=== PATIENT | male | born 1970 | race Two or more races ===

== ENCOUNTER 2024-07-05 08:14 | Outpatient (AMB) | payer BC, SELFPAY ==
[2024-07-05 08:24] VITALS: BP 178/83; PULSE 71; RESP 18; TEMP 36.1; O2SAT 99; BMI 26.5
--- NOTE | 2024-07-05 08:24 | ORTHONT_ITS ---
Vital signs 07/05/24 08:24 Height 1.68 m Height Method Stated Weight 74.616 kg Weight Measurement Method Standing Scale BMI 26.5 BP 178/83 H Blood Pressure Source Automatic Cuff Blood Pressure Location Right Upper Arm Position Sitting Respiration 18 Pulse 71 Pulse Source Monitor Temp 96.9 F Temp Source Temporal Artery Scan Pulse Oximetry (%) 99 Oxygen Delivery Method Room Air Med/Allergies Allergies & Medications Allergies No Known Drug Allergies Allergy (Verified 07/05/24 08:24) Medication Reconciliation cholecalciferol (vitamin D3) 50 mcg (2,000 unit) capsule 50 mcg PO QDAY 07/05/24 [History Confirmed 07/05/24] hydrochlorothiazide 50 mg tablet 50 mg PO QDAY 07/05/24 [History Confirmed 07/05/24] losartan 50 mg tablet 50 mg PO QDAY 07/05/24 [History Confirmed 07/05/24] meloxicam 7.5 mg tablet 7.5 mg PO QDAY #45 tabs 07/05/24 [Rx] rosuvastatin 20 mg tablet 20 mg PO QDAY 07/05/24 [History Confirmed 07/05/24] semaglutide 0.25 mg or 0.5 mg (2 mg/1.5 mL) subcutaneous pen injector (Ozempic) 0.5 mg subcut QWEEK 07/05/24 [History Confirmed 07/05/24] Subjective Visit Visit for: new patient and knee Immunization / Flu Flu Vaccine in the Last 12 Months: Yes Flu Vaccine Exclusion Criteria: Already Received History of Present Illness Chief complaint: BILATERAL KNEE PAIN Date of injury / onset of symptoms: JANUARY Patient is a 53-year-old male with bilateral knee pain. The pain has been ongoing for 3 years. It has worsened recently. The pain is worsened in the last 6 months after a fall. He reports that his feels like his knee popped. He is able to walk And has tried ibuprofen. Has not had any injections or physical therapy. 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 Exam Exam Patient is in no acute distress and is cooperative with the examination today. Breathing is nonlabored. In no respiratory distress. Bilateral extremities were evaluated and demonstrates sensation intact to light touch. Palpable pedal pulses are present. No significant edema is present. Bilateral hips were examined. The patient has no pain with log roll of the hips. Internal rotation to 30 degrees and external rotation to 30 degrees is painless. Negative FADIR. The left knee was examined. The left knee is in [varus] alignment. Range of motion from [0-115] degrees. Knee is stable to varus and valgus as well as AP translation with <5mm. Patient has a [negative] McMurrays. There is [no] pain with patellofemoral compression and [no] crepitus noted. The knee is [tender] to palpation [medially]. The right knee was also examined. The right knee is in [varus] alignment. Range of motion from [0-120] degrees. Knee is stable to varus and valgus as well as AP translation with <5mm. Patient has a [negative] McMurrays. There is [no] pain with patellofemoral compression and [no] crepitus noted. The knee is [tender] to palpation [medially]. I can only review nonweightbearing imaging from [place] [facility]. This demonstrates mild osteoarthritis with medial joint space narrowing Assessment and Plan Problem List (1) Degenerative arthritis of knee, bilateral: Status: Acute Plan: Patient is a 53-year-old male with bilateral knee pain and bilateral knee arthritis. We are getting x-rays to better evaluate his knees. We need weightbearing x-rays. We will see him back after his x-rays are done and likely give him injections at the next visit. We gave him a prescription for meloxicam Office Procedures GNS Level of Care Nursing/Assessment Patient Status: Initial/New Patient Nursing Assessment/Reassesment: Medication Reconciliation, Update PMH in EMR and Vital Signs Coordination of Care: Complex Care and Chronic Disease 1-5, Education Complex Pt/Fam, Consent,records obtained, informed consent, Lab and Imaging orders, Results/Orders obtained and Staff clarify orders New Patient Charge New Patient Point Assignment: 1109 New Patient Point Charge: TOURIST ADVISER Level 3 ([id number]) Past Medical History Past Medical History Have you ever been diagnosed with any of the following: Cardiology Problems Hypertension: Yes Respiratory Problems Smoking: No Smoking Exposure: No
== END 2024-07-05 09:17 | disposition home or self-care (01) ==
LOC: HODSRG 08:14
PROVIDERS: PCP Internal Medicine; Referring Provider Internal Medicine; Supervising Provider Orthopaedic Surgery Adult Reconstructive Orthopaedic Surgery; Visit Provider Orthopaedic Surgery Adult Reconstructive Orthopaedic Surgery
DX: M17.0 Bilateral primary osteoarthritis of knee (principal); I10 Essential (primary) hypertension
CPT/HCPCS: 99203; G0463

== ENCOUNTER → 2024-07-05 | Outpatient (CLI) | payer BC, SELFPAY ==
--- NOTE | 2024-07-05 10:31 | XR_ITS ---
Examination: Bilateral knees 2 views Right lateral knee left lateral knee 2 views Bilateral axial knees single view TECHNIQUE: Bilateral AP knees standing single view, bilateral PA knees standing single view 30 degrees flexion Staining right lateral knee left lateral knee 2 views Bilateral axial knees single view total 5 views Exam date and time: July 05, 2024 1129 hours INDICATIONS: Patient fell 6 months ago with injury to both knees, bilateral knee pain. FINDINGS: Moderate osteopenia No fracture or dislocation involving either knee Bilateral moderate to advanced narrowing lateral joint spaces Bilateral moderate osteoarthritis patellofemoral joints Bilateral small knee effusions Soft tissue vascular calcification IMPRESSION: No fracture or dislocation involving either knee Bilateral moderate to advanced narrowing lateral joint spaces
== END | disposition home or self-care (01) ==
PROVIDERS: Referring Provider Orthopaedic Surgery Adult Reconstructive Orthopaedic Surgery; Visit Provider Orthopaedic Surgery Adult Reconstructive Orthopaedic Surgery
DX: M25.862 Other specified joint disorders, left knee (principal); M25.861 Other specified joint disorders, right knee; S89.91XS Unspecified injury of right lower leg, sequela; S89.92XS Unspecified injury of left lower leg, sequela; W19.XXXS Unspecified fall, sequela
CPT/HCPCS: 73564

== ENCOUNTER 2024-07-22 14:45 | Outpatient (AMB) | payer BC, SELFPAY ==
[2024-07-22 14:50] VITALS: BP 176/88; PULSE 93; RESP 18; TEMP 36.5; O2SAT 98; BMI 26.9
--- NOTE | 2024-07-22 14:50 | RHCORTHONT_ITS ---
Vital signs 07/22/24 14:50 Height 1.68 m Height Method Stated Weight 75.948 kg Weight Measurement Method Standing Scale BMI 26.9 BP 176/88 H Blood Pressure Source Automatic Cuff Blood Pressure Location Right Upper Arm Position Sitting Respiration 18 Pulse 93 Pulse Source Monitor Temp 97.7 F Temp Source Temporal Artery Scan Pulse Oximetry (%) 98 Oxygen Delivery Method Room Air Med/Allergies Allergies & Medications Allergies No Known Drug Allergies Allergy (Verified 07/22/24 14:53) Medication Reconciliation cholecalciferol (vitamin D3) 50 mcg (2,000 unit) capsule 50 mcg PO QDAY 07/05/24 [History Confirmed 07/22/24] hydrochlorothiazide 50 mg tablet 50 mg PO QDAY 07/05/24 [History Confirmed 07/22/24] losartan 50 mg tablet 50 mg PO QDAY 07/05/24 [History Confirmed 07/22/24] meloxicam 7.5 mg tablet 7.5 mg PO QDAY #45 tabs 07/05/24 [Rx Confirmed 07/22/24] rosuvastatin 20 mg tablet 20 mg PO QDAY 07/05/24 [History Confirmed 07/22/24] semaglutide 0.25 mg or 0.5 mg (2 mg/1.5 mL) subcutaneous pen injector (Ozempic) 0.5 mg subcut QWEEK 07/05/24 [History Confirmed 07/22/24] Exam Exam Patient is in no acute distress and is cooperative with the examination today. Breathing is nonlabored. In no respiratory distress. Bilateral extremities were evaluated and demonstrates sensation intact to light touch. Palpable pedal pulses are present. No significant edema is present. Bilateral hips were examined. The patient has no pain with log roll of the hips. Internal rotation to 30 degrees and external rotation to 30 degrees is painless. Negative FADIR. The left knee was examined. The left knee is in [varus] alignment. Range of motion from [0-115] degrees. Knee is stable to varus and valgus as well as AP translation with <5mm. Patient has a [negative] McMurrays. There is [no] pain with patellofemoral compression and [no] crepitus noted. The knee is [tender] to palpation [medially]. The right knee was also examined. The right knee is in [varus] alignment. Range of motion from [0-120] degrees. Knee is stable to varus and valgus as well as AP translation with <5mm. Patient has a [negative] McMurrays. There is [no] pain with patellofemoral compression and [no] crepitus noted. The knee is [tender] to palpation [medially]. X-rays were reviewed. These are weightbearing films and demonstrate Moderatearthritis primarily in the lateral compartment. The arthritis is worse on the right compared to the left Assessment and Plan Problem List (1) Degenerative arthritis of knee, bilateral: Status: Acute Plan: Patient is a 53-year-old male with bilateral knee pain and bilateral knee arthritis. We discussed nonoperative and operative options. We discussed natural history of arthritis great detail with him today. We will start with cortisone injections and he should continue his anti-inflammatories Plan Recommend knee cortisone injections as patient would like to proceed with conservative treatment at this time. The risks and benefits of the procedure were reviewed with the patient and patient gave verbal consent to continue with the procedure. Procedure: performed by Dr. Motley Using sterile technique the Bilateral knees were thoroughly prepped with alcohol, and approximately 1 cc of Kenalog 40 mg/mL and 4 cc of 1% lidocaine was injected into each knee without resistance into the medial tibial femoral joint space. The patient tolerated the procedure. All Office Procedures GNS Level of Care Nursing/Assessment Patient Status: Established Patient Nursing Assessment/Reassesment: Medication Reconciliation, Update PMH in EMR and Vital Signs Coordination of Care: Complex Care and Chronic Disease 1-5, Education Complex Pt/Fam, Consent,records obtained, informed consent, Results/Orders obtained and Staff clarify orders Established Patient Charge Established Patient Point Assignment: 95 Established Patient Point Charge: EP Level 3 (80-115) Surgical Proc/IM SQ injection Major Surgical Procedure: Yes (BILATERAL KNEE INJECTIONS) Medication Given Medication Given Medication Given: Yes Documented Dose Given: 4 Route: Infiitration Medication Given Medication Given Medication Given: Yes Documented Dose Given: 2 Route: Infiitration Office Meds Xylocaine 10 mg/mL (1 %) injection solution Performing Provider: Armando Motley MD Performing Location: [facility] Administered by: Armando Motley MD on 07/22/24 15:25 Dose Route Admin Location Dispensed Lot Number Expiration Date [facility] Educational Audiologist 40 mL Infiltration 40 mL [id number] 03/01/27 34423-958-98 [facility] triamcinolone acetonide 40 mg/mL suspension for injection Performing Provider: Armando Motley MD Performing Location: [facility] Administered by: Armando Motley MD on 07/22/24 15:25 Dose Route Admin Location Dispensed Lot Number Expiration Date [employer] Educational Audiologist 80 mg Infiltration 2 mL [id number] 12/30/25 0223-9025-95 TEV[employer] PARENTERAL MA Intake Visit Data Collection New Patient or Established: Established Patient (seen at [facility] within 3 years) Reason for Visit:: FOLLOW UP XRAYS Seen by Clinical Staff ONLY (RN/MA): No Verbal consent obtained for Telemed visit?: No Health Advocate Required: No PCP or OBGYN visit in last 3 months: Yes Hx Now: No Do You Feel Safe at Home: Yes Authorities Contacted: N/A Questionairres Past Medical History Past Medical History Have you ever been diagnosed with any of the following: Cardiology Problems Hypertension: Yes Respiratory Problems Smoking: No Smoking Exposure: No Subjective Visit Visit for: follow up visit, knee and x-rays Immunization / Flu Flu Vaccine in the Last 12 Months: No Flu Vaccine Exclusion Criteria: No Exclusion Criteria History of Present Illness Chief complaint: F/U ON XRAYS Wilman is a 54-year-old male with bilateral knee pain and right greater than left knee arthritis. The arthritis is primarily laterally. We discussed meloxicam his knee feels great since he started this. We discussed we can try bilateral knee injections as well. He would like to try this. We discussed natural history of arthritis in great detail with him today. Pain Pain level (0-10): 4 Pain duration: COMES AND GOES Pain location: inside (medial), outside (lateral), anterior and posterior Pain quality: dull and aching Pain timing: increases with activity Ambulatory data Ambulatory device: none Treatments Improvement with previous injections: No Improvement with PT: No Improvement with NSAIDS: n/a Review of Systems Review of Systems: All systems negative unless otherwise noted in HPI.
== END 2024-07-22 15:32 | disposition home or self-care (01) ==
LOC: HODSRG 14:45
PROVIDERS: PCP Internal Medicine; Referring Provider Internal Medicine; Supervising Provider Orthopaedic Surgery Adult Reconstructive Orthopaedic Surgery; Visit Provider Orthopaedic Surgery Adult Reconstructive Orthopaedic Surgery
DX: M17.0 Bilateral primary osteoarthritis of knee (principal); M25.562 Pain in left knee; M25.561 Pain in right knee
CPT/HCPCS: 20610; 99213; J3301; J3490; G0463

== ENCOUNTER 2024-11-29 13:03 | Outpatient (AMB) | payer OTHER, SELFPAY ==
[2024-11-29 13:24] VITALS: BP 123/78; PULSE 97; RESP 19; TEMP 36.2; O2SAT 97; BMI 24.9
--- NOTE | 2024-11-29 13:24 | PD.ORTHCLVIS ---
Vital signs 11/29/24 13:24 Height 1.68 m Height Method Stated Weight 70.42 kg Weight Measurement Method Standing Scale BMI 24.9 BP 123/78 Blood Pressure Source Automatic Cuff Blood Pressure Location Right Upper Arm Position Sitting Respiration 19 Pulse 97 Pulse Source Monitor Temp 97.1 F Temp Source Temporal Artery Scan Pulse Oximetry (%) 97 Oxygen Delivery Method Room Air Med/Allergies Allergies & Medications Allergies No Known Drug Allergies Allergy (Verified 11/29/24 13:24) Medication Reconciliation cholecalciferol (vitamin D3) 50 mcg (2,000 unit) capsule 50 mcg PO QDAY 07/05/24 [History Confirmed 11/29/24] hydrochlorothiazide 50 mg tablet 50 mg PO QDAY 07/05/24 [History Confirmed 11/29/24] losartan 50 mg tablet 50 mg PO QDAY 07/05/24 [History Confirmed 11/29/24] meloxicam 7.5 mg tablet 7.5 mg PO QDAY #45 tabs 07/05/24 [Rx Confirmed 11/29/24] rosuvastatin 20 mg tablet 20 mg PO QDAY 07/05/24 [History Confirmed 11/29/24] semaglutide 0.25 mg or 0.5 mg (2 mg/1.5 mL) subcutaneous pen injector (Ozempic) 0.5 mg subcut QWEEK 07/05/24 [History Confirmed 11/29/24] meloxicam 15 mg tablet 15 mg PO QDAY #60 tabs 11/29/24 [Rx] Exam Exam Patient is in no acute distress and is cooperative with the examination today. Breathing is nonlabored. In no respiratory distress. Bilateral extremities were evaluated and demonstrates sensation intact to light touch. Palpable pedal pulses are present. No significant edema is present. Bilateral hips were examined. The patient has no pain with log roll of the hips. Internal rotation to 30 degrees and external rotation to 30 degrees is painless. Negative FADIR. The left knee was examined. The left knee is in [varus] alignment. Range of motion from [0-115] degrees. Knee is stable to varus and valgus as well as AP translation with <5mm. Patient has a [negative] McMurrays. There is [no] pain with patellofemoral compression and [no] crepitus noted. The knee is [tender] to palpation [medially]. The right knee was also examined. The right knee is in [varus] alignment. Range of motion from [0-120] degrees. Knee is stable to varus and valgus as well as AP translation with <5mm. Patient has a [negative] McMurrays. There is [no] pain with patellofemoral compression and [no] crepitus noted. The knee is [tender] to palpation [medially]. X-rays were reviewed. These are weightbearing films and demonstrate Moderatearthritis primarily in the lateral compartment. The arthritis is worse on the right compared to the left Assessment and Plan Problem List (1) Degenerative arthritis of knee, bilateral: Status: Acute Plan: Patient is a 53-year-old male with bilateral knee pain and bilateral knee arthritis. We discussed nonoperative and operative options. We discussed natural history of arthritis great detail with him today. We will start with cortisone injections and he should continue his anti-inflammatories Plan Recommend knee cortisone injections as patient would like to proceed with conservative treatment at this time. The risks and benefits of the procedure were reviewed with the patient and patient gave verbal consent to continue with the procedure. Procedure: performed by Dr. Motley Using sterile technique the Bilateral knees were thoroughly prepped with alcohol, and approximately 1 cc of Kenalog 40 mg/mL and 4 cc of 1% lidocaine was injected into each knee without resistance into the medial tibial femoral joint space. The patient tolerated the procedure. All Office Procedures GNS Level of Care Nursing/Assessment Patient Status: Established Patient Nursing Assessment/Reassesment: Medication Reconciliation, Update PMH in EMR and Vital Signs Coordination of Care: Complex Care and Chronic Disease 1-5, Education Complex Pt/Fam, Consent,records obtained, informed consent, Lab and Imaging orders, Results/Orders obtained and Staff clarify orders Established Patient Charge Established Patient Point Assignment: 110 Established Patient Point Charge: EP Level 3 (80-115) Surgical Proc/IM SQ injection Major Surgical Procedure: Yes (KNEE INJECTIONS ) Medication Given Medication Given Medication Given: Yes Documented Dose Given: 8 Route: Infiitration Medication Given Medication Given Medication Given: Yes Documented Dose Given: 2 Route: Infiitration Office Meds Xylocaine 10 mg/mL (1 %) injection solution Performing Provider: Armando Motley MD Performing Location: [facility] Administered by: Armando Motley MD on 11/29/24 14:48 Dose Route Admin Location Dispensed Lot Number Expiration Date [facility] Administrative Asst 40 mL Infiltration 40 mL [id number] 01/02/28 79904-614-66 [employer] triamcinolone acetonide 40 mg/mL suspension for injection Performing Provider: Armando Motley MD Performing Location: [facility] Administered by: Armando Motley MD on 11/29/24 14:48 Dose Route Admin Location Dispensed Lot Number Expiration Date [facility] Administrative Asst 80 mg intra-articular KNEE 2 mL [id number] 05/03/26 6281-0236-35 TEVA PARENTERAL [place] Intake Visit Data Collection New Patient or Established: Established Patient (seen at [facility] within 3 years) Reason for Visit:: BILATERAL KNEE PAIN Seen by Clinical Staff ONLY (RN/MA): No Verbal consent obtained for Telemed visit?: No Primary Clinician Required: No PCP or OBGYN visit in last 3 months: Yes Hx Now: No Do You Feel Safe at Home: Yes Authorities Contacted: N/A Questionairres Past Medical History Past Medical History Have you ever been diagnosed with any of the following: Cardiology Problems Hypertension: Yes Respiratory Problems Smoking: No Smoking Exposure: No Subjective Visit Visit for: follow up visit, knee and injections Immunization / Flu Flu Vaccine in the Last 12 Months: No Flu Vaccine Exclusion Criteria: No Exclusion Criteria History of Present Illness Chief complaint: BILATERAL KNEE PAIN Wilman is a 54-year-old male with bilateral knee pain and right greater than left knee arthritis. The arthritis is primarily laterally. We discussed meloxicam his knee feels great since he started this. We discussed we can try bilateral knee injections as well. He would like to try this. We discussed natural history of arthritis in great detail with him today. He received about 3 months of relief with the last injection Personal History Red flag PMH: BMI BMI Counceling provided: Yes Pain Pain level (0-10): 4 Pain duration: CONSTANT Pain location: anterior Pain quality: dull and aching Pain timing: increases with activity Associated signs & symptoms: none Ambulatory data Ambulatory device: none Treatments Improvement with previous injections: No Improvement with PT: No Improvement with NSAIDS: no Review of Systems Review of Systems: All systems negative unless otherwise noted in HPI.
== END 2024-11-29 13:49 | disposition home or self-care (01) ==
LOC: HODSRG 13:03
PROVIDERS: Supervising Provider Orthopaedic Surgery Adult Reconstructive Orthopaedic Surgery; Visit Provider Orthopaedic Surgery Adult Reconstructive Orthopaedic Surgery
DX: M17.0 Bilateral primary osteoarthritis of knee (principal); M25.562 Pain in left knee; M25.561 Pain in right knee
CPT/HCPCS: 20610; 99213; J3301; J3490; G0463